=== PATIENT | female | born 1960 | race Caucasian/White ===

== ENCOUNTER 2017-10-21 10:45 | Day surgery (SDC) | payer OTHER, SELFPAY ==
[2017-10-21 11:00] VITALS: BP 118/87; BP 129/78; BP 162/98; PULSE 108; PULSE 111; PULSE 113; RESP 20; TEMP 36.7; O2SAT 96
--- NOTE | 2017-10-21 11:28 | HMH.PMPROC ---
- Procedure Date: 10/21/17 Time: 11:28 Anesthesiologist:: Reece Degroot MD Complications:: None Pre-procedure Diagnosis:: Degenerative disc disease of cervical spine with cervical spondylosis and facet of the Post-procedure Diagnosis:: Same Indications for Procedure:: This patient is a pleasant 56-year-old white female who we are treating for neck pain as well as low back pain. She has degenerative disc disease of the cervical spine with cervical facet arthropathy and spondylosis. She has had one round of cervical medial branch blocks at C5-C6, C6-C7 and C7-T1 bilaterally with 80% relief lasted 4 days. She presents for a second round of medial branch blocks today at the same levels. Procedure Details:: Cervical medial branch block Informed consent was obtained and the risk and benefits of the procedure was explained to the patient. The patient was into the procedure room and placed prone on the procedure table. The neck was prepped using ChloraPrep. C-arm fluoroscopy was used to view the cervical spine. The skin and subcutaneous tissues were anesthetized lidocaine. I placed 22-gauge spinal needles into the facet joints of C5-6, C6-7 and C7-T1 bilaterally. Needle placement was confirmed with dye. After this I injected 1 mL lidocaine 1.5% and Depo-Medrol 13 mg into each facet joint/medial branch of C5-6, C6-7 and C7-T1 bilaterally. We used a total of 80 mg of Medrol for all 3 levels bilaterally. Patient tolerated the procedure well with no complications. Plan and Disposition:: We will follow-up with this patient in 2 weeks. We will reevaluate symptoms at that time. If she gets success with these medial branch blocks we will proceed to cervical RFA of C5-6, C7 and C7-T1 bilaterally.
[2017-10-21 12:31] VITALS: BP 130/86; PULSE 90; RESP 18; TEMP 37; O2SAT 96
== END 2017-10-21 12:32 | disposition home or self-care (01) ==
LOC: SC.PAINP 10:48
PROVIDERS: Family Provider Emergency Medicine; PCP Emergency Medicine; Visit Provider Anesthesiology
DX: M50.30 Other cervical disc degeneration, unspecified cervical region (principal); M47.892 Other spondylosis, cervical region
CPT/HCPCS: 64490; 64491; 64492; J1040; Q9966

== ENCOUNTER → 2017-12-05 15:12 | Outpatient (POV) | payer OTHER, SELFPAY ==
--- NOTE | 2017-12-05 15:22 | HMH.PAINSOAP ---
[facility] Pain Management SOAP Note Subjective:: patient Is a pleasant 57-year-old white female presents today for follow-up after medial branch blocks of cervical spine. Patient had 60% relief after the injection and she continues to still have this relief for more than 4 weeks. Patient is also medically managed by us with [place] 5 p.o. 4 times daily and gabapentin 300 mg 4 times daily. Patient's KAROL #[id number] reviewed and appropriate. Patient's UDS has been appropriate in the past. Patient states that weather does make her pain worse however she has been doing well since her last injection. ROS General: no recent weight change, no fever, no sleep disturbances Respiratory: no cough, no shortness of air, no recurring pulmonary infections Cardiovascular/Peripheral Vascular: No chest pain, No palpitations, no edema, no shortness of breath. Gastrointestinal: no incontinence, normal bowel movements reported Genitourinary: no incontinence Musculoskeletal: Neck pain Psychiatric: normal mood/ affect Neurological: [denies weakness in extremities], [denies balance issues] Objective:: Physical Exam General: Alert and oriented x3, no acute distress, pleasant and cooperative, [on room air] Lungs: Resps E/U, Symmetrical chest expansion, Musculoskeletal: Flexion and extension of lumbar and cervical spine somewhat guarded secondary to pain, deep tendon reflexes normal, strength in upper and lower extremities [5/5], normal gait noted Neurological: speech clear, pulp mill operator equal, no gross sensory deficits Assessment:: Cervical spondylosis, cervical facet arthropathy, degenerative disc disease lumbar spine Plan:: Patient and I talked in length about RFA of the cervical spine. I believe that this would be very good for her moving forward since she has gotten such great relief with her medial branch blocks. Patient would like to research this on her own for a bit and decide. Patient has tried and failed conservative therapies including physical therapy and anti-inflammatories. Patient also do refills today. Since UDS has been appropriate in the past. Patient's Karol #[id number] reviewed and appropriate. We will refill the patient's [place] 5 mg 1 p.o. 4 times daily. We will give her [address] Degroot is reviewed the chart and approved. Patient has been prescribed a controlled substance after being counseled on the medication, medication safety, and possible side effects. KAROL report has been obtained and reviewed prior to prescription and found to be appropriate. Opioid contract was reviewed and signed by the patient, and that they have agreed to all of the terms set forth by our compliance program. This note was dictated using voice recognition software and may contain errors or omissions
[2017-12-05 15:25] VITALS: BP 140/77; PULSE 97; RESP 18; O2SAT 97; BMI 25.0
--- NOTE | 2017-12-05 15:29 | P.CONS_ITS ---
[facility] Pain Management SOAP Note Subjective:: patient Is a pleasant 57-year-old white female presents today for follow-up after medial branch blocks of cervical spine. Patient had 60% relief after the injection and she continues to still have this relief for more than 4 weeks. Patient is also medically managed by us with [place] 5 p.o. 4 times daily and gabapentin 300 mg 4 times daily. Patient's KAROL #[id number] reviewed and appropriate. Patient's UDS has been appropriate in the past. Patient states that weather does make her pain worse however she has been doing well since her last injection. ROS General: no recent weight change, no fever, no sleep disturbances Respiratory: no cough, no shortness of air, no recurring pulmonary infections Cardiovascular/Peripheral Vascular: No chest pain, No palpitations, no edema, no shortness of breath. Gastrointestinal: no incontinence, normal bowel movements reported Genitourinary: no incontinence Musculoskeletal: Neck pain Psychiatric: normal mood/ affect Neurological: [denies weakness in extremities], [denies balance issues] Objective:: Physical Exam General: Alert and oriented x3, no acute distress, pleasant and cooperative, [ on room air] Lungs: Resps E/U, Symmetrical chest expansion, Musculoskeletal: Flexion and extension of lumbar and cervical spine somewhat guarded secondary to pain, deep tendon reflexes normal, strength in upper and lower extremities [5/5], normal gait noted Neurological: speech clear, labor custodian equal, no gross sensory deficits Assessment:: Cervical spondylosis, cervical facet arthropathy, degenerative disc disease lumbar spine Plan:: Patient and I talked in length about RFA of the cervical spine. I believe that this would be very good for her moving forward since she has gotten such great relief with her medial branch blocks. Patient would like to research this on her own for a bit and decide. Patient has tried and failed conservative therapies including physical therapy and anti-inflammatories. Patient also do refills today. Since UDS has been appropriate in the past. Patient's Karol # [id number] reviewed and appropriate. We will refill the patient's [place] 5 mg 1 p.o. 4 times daily. We will give her [address] Degroot is reviewed the chart and approved. Patient has been prescribed a controlled substance after being counseled on the medication, medication safety, and possible side effects. KAROL report has been obtained and reviewed prior to prescription and found to be appropriate. Opioid contract was reviewed and signed by the patient, and that they have agreed to all of the terms set forth by our compliance program. This note was dictated using voice recognition software and may contain errors or omissions
== END ==
PROVIDERS: Family Provider Emergency Medicine; PCP Emergency Medicine; Visit Provider Clinical Nurse Specialist Family Health
DX: M47.22 Other spondylosis with radiculopathy, cervical region (principal)
CPT/HCPCS: 99212

== ENCOUNTER → 2017-12-30 11:47 | Outpatient (CLI) | payer OTHER, SELFPAY ==
[2017-12-30 14:08] LABS: Basophils # 0.1 K/mm3 (0-0.2); Basophils % 0.5 % (0.1-2.0); Eosinophils # 0.1 K/mm3 (0.0-0.4); Eosinophils % 0.8 % (0.1-12.0); Hematocrit 45.6 % (37.0-47.0); Hemoglobin 15.1 g/dL (12.2-16.2); Lymphocytes # 2.3 K/mm3 (0.7-4.5); Lymphocytes % 21.9 K/mm3 (10-50); Mean Corpuscular Hemoglobin 31.2 pg (27.0-31.2); Mean Corpuscular Volume 94.4 fl (81-99); Mean Platelet Volume 9.6 fl (7.4-10.4); Monocytes # 0.6 K/mm3 (0.1-1.0); Monocytes % 5.4 % (1.7-9.3); Neutrophils # 7.3 K/mm3 (1.8-7.8); Neutrophils % 71.4 % (37.0-80.0); Platelet Count 314 K/mm3 (142-424); Red Blood Count 4.83 M/mm3 (4.20-5.40); Red Cell Distribution Width 12.5 % (11.5-17.5); White Blood Count 10.3 K/mm3 (4.8-10.8)
[2017-12-30 14:44] LABS: Magnesium 2.2 mg/dL (1.4-2.2)
[2017-12-30 14:55] LABS: Alanine Aminotransferase 40 U/L (12-78); Albumin Level 4.3 gm/dL (3.4-5.0); Albumin/Globulin Ratio 1.2 (1.1-1.8); Alkaline Phosphatase 109 U/L (46-116); Anion Gap 14.4 mEq/L (5-15); Aspartate Amino Transferase 28 U/L (15-37); Bilirubin,Total 0.1 mg/dL (0.2-1.0); Blood Urea Nitrogen 12 mg/dL (7-18); Calcium 9.6 mg/dL (8.5-10.1); Carbon Dioxide 27 mmol/L (21.0-32.0); Chloride 104 mmol/L (98-107); Chol/HDL Ratio 4.6 (1-3.5); Cholesterol 255 mg/dL (140-200); Creatinine,Serum 0.83 mg/dL (0.55-1.02); Estimated Glomerular Filt Rate 71 ml/min (>60); Free T4 (Free Thyroxine) 0.94 ng/dl (0.76-1.46); GFR (African American) 86 ML/MIN (>60); Globulin 3.5 gm/dl (1.3-3.2); Glucose 102 mg/dL (74-106); HDL Cholesterol 55 mg/dL (29-89); LDL Cholesterol 160 mg/dL (0-130); Potassium 4.4 mmoL/L (3.5-5.1); Sodium 141 mmol/L (136-145); Thyroid Stimulating Hormone 1.59 uIU/ml (0.358-3.740); Total Protein,Serum 7.8 gm/dL (6.4-8.2); Triglycerides 198 mg/dL (30-200); VLDL Cholesterol 40 mg/dL (0-40)
[2017-12-30 16:56] LABS: Hemoglobin A1C 5.3 % (0.0-7.0)
[2017-12-31 18:31] LABS: Vitamin B12 596 pg/mL (232-1245); Vitamin D 25 Hydroxy 32.8 ng/mL (30.0-100.0)
== END ==
PROVIDERS: Visit Provider Nurse Practitioner Family
DX: R53.83 Other fatigue (principal); E55.9 Vitamin D deficiency, unspecified; E78.5 Hyperlipidemia, unspecified; K21.9 Gastro-esophageal reflux disease without esophagitis; F41.9 Anxiety disorder, unspecified; F32.9 Major depressive disorder, single episode, unspecified; Z79.899 Other long term (current) drug therapy
CPT/HCPCS: 80053; 80061; 82607; 82652; 83036; 83735; 84439; 84443; 85025

== ENCOUNTER → 2018-02-27 08:58 | Outpatient (POV) | payer OTHER, SELFPAY ==
[2018-02-27 09:17] VITALS: BP 157/93; PULSE 122; RESP 20; TEMP 36.6; O2SAT 99; BMI 33.8
[2018-02-27 09:23] LABS: Amphetamine/Metha Screen,Urine Negative ng/mL (<1000); Barbiturates Screen,Urine Negative ng/mL (<200); Benzodiazepines Screen,Urine Negative ng/mL (200); Cannabinoid Screen,Urine Negative ng/mL (<50); Cocaine Screen,Urine Negative ng/g (<300); Methadone Screen,Urine Negative ng/mL (<300); Opiate Screen,Urine Positive ng/mL (<300); Phencyclidine Screen,Urine Negative ng/mL (<25)
--- NOTE | 2018-02-27 09:46 | HMH.PAINSOAP ---
[facility] Pain Management SOAP Note Subjective:: Patient is a pleasant 57-year-old white female who presents today for follow-up. Patient has had medial branch blocks of the cervical spine in the past and has had excellent relief with them. At her last visit we discussed an RFA. Patient states she is not in a position where she wants to move forward with this at this time. Patient states she is having some anxiety issues that she is working on with her psychologist. Patient also states that she has her disability hearing this week. Patient states she has been struggling with her anxiety since she has stopped her Valium. Patient is currently being medically managed with [place] 5 p.o. 4 times daily and gabapentin 300 mg 1 p.o. 4 times daily. Patient's KAROL #[id number] reviewed and appropriate. Patient's UDS is pending today. Patient's UDS has been appropriate in the past. Patient denies side effects to the medication. Patient states that helps 60-70% with her pain symptoms. ROS General: no recent weight change, no fever, no sleep disturbances Respiratory: no cough, no shortness of air, no recurring pulmonary infections Cardiovascular/Peripheral Vascular: No chest pain, No palpitations, no edema, no shortness of breath. Gastrointestinal: no incontinence, normal bowel movements reported Genitourinary: no incontinence Musculoskeletal: Neck pain Psychiatric: normal mood/ affect Neurological: [denies weakness in extremities], [denies balance issues] Objective:: Physical Exam General: Alert and oriented x3, no acute distress, pleasant and cooperative, [on room air] Lungs: Resps E/U, Symmetrical chest expansion, Eyes: PERRL Musculoskeletal: Flexion and extension of cervical and lumbar spine somewhat guarded secondary to pain, deep tendon reflexes normal, strength in upper and lower extremities [5/5], normal gait noted Neurological: speech clear, field test engineer equal, no gross sensory deficits Assessment:: Cervical spondylosis, cervical facet arthropathy, degenerative disc disease of the lumbar spine Plan:: We will refill the patient's medication [place] 5 mg 1 p.o. 4 times daily and gabapentin 300 mg 1 p.o. 4 times daily. Patient's Karol and urine drug screen both have been reviewed we will continue to monitor. Patient will get 2 months worth of prescriptions and we will follow-up with her in [address] Degroot has reviewed this chart and agrees with this plan of care. Patient has been prescribed a controlled substance after being counseled on the medication, medication safety, and possible side effects. KAROL report has been obtained and reviewed prior to prescription and found to be appropriate. Opioid contract was reviewed and signed by the patient, and that they have agreed to all of the terms set forth by our compliance program. This note was dictated using voice recognition software and may contain errors or omissions
--- NOTE | 2018-02-27 09:49 | P.CONS_ITS ---
[facility] Pain Management SOAP Note Subjective:: Patient is a pleasant 57-year-old white female who presents today for follow- up. Patient has had medial branch blocks of the cervical spine in the past and has had excellent relief with them. At her last visit we discussed an RFA. Patient states she is not in a position where she wants to move forward with this at this time. Patient states she is having some anxiety issues that she is working on with her psychologist. Patient also states that she has her disability hearing this week. Patient states she has been struggling with her anxiety since she has stopped her Valium. Patient is currently being medically managed with [place] 5 p.o. 4 times daily and gabapentin 300 mg 1 p.o. 4 times daily. Patient's KAROL #[id number] reviewed and appropriate. Patient's UDS is pending today. Patient's UDS has been appropriate in the past. Patient denies side effects to the medication. Patient states that helps 60-70% with her pain symptoms. ROS General: no recent weight change, no fever, no sleep disturbances Respiratory: no cough, no shortness of air, no recurring pulmonary infections Cardiovascular/Peripheral Vascular: No chest pain, No palpitations, no edema, no shortness of breath. Gastrointestinal: no incontinence, normal bowel movements reported Genitourinary: no incontinence Musculoskeletal: Neck pain Psychiatric: normal mood/ affect Neurological: [denies weakness in extremities], [denies balance issues] Objective:: Physical Exam General: Alert and oriented x3, no acute distress, pleasant and cooperative, [ on room air] Lungs: Resps E/U, Symmetrical chest expansion, Eyes: PERRL Musculoskeletal: Flexion and extension of cervical and lumbar spine somewhat guarded secondary to pain, deep tendon reflexes normal, strength in upper and lower extremities [5/5], normal gait noted Neurological: speech clear, trapeze performer equal, no gross sensory deficits Assessment:: Cervical spondylosis, cervical facet arthropathy, degenerative disc disease of the lumbar spine Plan:: We will refill the patient's medication [place] 5 mg 1 p.o. 4 times daily and gabapentin 300 mg 1 p.o. 4 times daily. Patient's Karol and urine drug screen both have been reviewed we will continue to monitor. Patient will get 2 months worth of prescriptions and we will follow-up with her in [address] Degroot has reviewed this chart and agrees with this plan of care. Patient has been prescribed a controlled substance after being counseled on the medication, medication safety, and possible side effects. KAROL report has been obtained and reviewed prior to prescription and found to be appropriate. Opioid contract was reviewed and signed by the patient, and that they have agreed to all of the terms set forth by our compliance program. This note was dictated using voice recognition software and may contain errors or omissions
[2018-03-04 07:22] LABS: Codeine Negative (Cutoff=100); Hydrocodone Positive (.); Hydromorphone Positive (.); Morphine Negative (Cutoff=100)
[2018-03-04 18:39] LABS: Opiates Positive (.)
== END ==
PROVIDERS: Family Provider Emergency Medicine; PCP Emergency Medicine; Visit Provider Clinical Nurse Specialist Family Health
DX: M47.812 Spondylosis without myelopathy or radiculopathy, cervical region (principal); Z79.899 Other long term (current) drug therapy
CPT/HCPCS: 80305; 80361; 80365; 99212; G0480

== ENCOUNTER → 2018-04-04 09:28 | Outpatient (POV) | payer OTHER, SELFPAY ==
[2018-04-04 10:05] VITALS: BP 152/87; PULSE 135; RESP 20; O2SAT 98; BMI 26.4
--- NOTE | 2018-04-04 11:24 | HMH.PAINSOAP ---
[facility] Pain Management SOAP Note Subjective:: A pleasant 57-year-old white female who presents today for follow-up discussion. Patient has been receiving injections from us with extremely good relief. At last visit we did discuss an RFA. Patient wants to hold off on this at this time. Patient is having additional anxiety issues she is currently seeing a psychologist . Patient was taken off her diazepam due to her narcotic prescriptions. Patient has tried multiple medications to replace this however she has found that they are ineffective. Patient is tearful today and states that she is having no quality of life due to her debilitating anxiety. Patient and I had a long discussion about narcotics and benzodiazepines. Patient understands that there are risks. I discussed with the patient if she would like to continue with the diazepam and her psychologist wrote us a note stating that he understood that she was on the medication that she was receiving from us and he was willing to continue to monitor her diazepam use that we would continue on with her medication management in injective therapy. ROS General: no recent weight change, no fever, no sleep disturbances Respiratory: no cough, no shortness of air, no recurring pulmonary infections Cardiovascular/Peripheral Vascular: No chest pain, No palpitations, no edema, no shortness of breath. Gastrointestinal: no incontinence, normal bowel movements reported Genitourinary: no incontinence Musculoskeletal:neck Pain Psychiatric: Anxious Neurological: [denies weakness in extremities], [denies balance issues] Objective:: Physical Exam General: Alert and oriented x3, no acute distress, pleasant and cooperative, [on room air] Lungs: Resps E/U, Symmetrical chest expansion, Eyes: PERRL Musculoskeletal: Flexion and extension of cervical spine somewhat guarded secondary to pain, deep tendon reflexes normal, strength in upper and lower extremities [5/5], normal gait noted Neurological: speech clear, snubber equal, no gross sensory deficits Assessment:: Cervical spondylosis, cervical facet arthropathy, degenerative disc disease of the lumbar spine Plan:: Patient and I discussed utilizing diazepam with her current narcotic treatment. Patient understands the risks of both medications at the same time. Patient is going to speak with her psychologist and have him write a note to our office stating that he is aware of the medication she is receiving from us prior to starting her back on diazepam therapy. I believe that at this time the diazepam may be helpful in decreasing her quality of life. I will follow-up with her at her next appointment for her medication refills. This note was dictated using voice recognition software and may contain errors or omissions
--- NOTE | 2018-04-04 11:27 | P.CONS_ITS ---
[facility] Pain Management SOAP Note Subjective:: A pleasant 57-year-old white female who presents today for follow-up discussion. Patient has been receiving injections from us with extremely good relief. At last visit we did discuss an RFA. Patient wants to hold off on this at this time. Patient is having additional anxiety issues she is currently seeing a psychologist . Patient was taken off her diazepam due to her narcotic prescriptions. Patient has tried multiple medications to replace this however she has found that they are ineffective. Patient is tearful today and states that she is having no quality of life due to her debilitating anxiety. Patient and I had a long discussion about narcotics and benzodiazepines. Patient understands that there are risks. I discussed with the patient if she would like to continue with the diazepam and her psychologist wrote us a note stating that he understood that she was on the medication that she was receiving from us and he was willing to continue to monitor her diazepam use that we would continue on with her medication management in injective therapy. ROS General: no recent weight change, no fever, no sleep disturbances Respiratory: no cough, no shortness of air, no recurring pulmonary infections Cardiovascular/Peripheral Vascular: No chest pain, No palpitations, no edema, no shortness of breath. Gastrointestinal: no incontinence, normal bowel movements reported Genitourinary: no incontinence Musculoskeletal:neck Pain Psychiatric: Anxious Neurological: [denies weakness in extremities], [denies balance issues] Objective:: Physical Exam General: Alert and oriented x3, no acute distress, pleasant and cooperative, [ on room air] Lungs: Resps E/U, Symmetrical chest expansion, Eyes: PERRL Musculoskeletal: Flexion and extension of cervical spine somewhat guarded secondary to pain, deep tendon reflexes normal, strength in upper and lower extremities [5/5], normal gait noted Neurological: speech clear, phlebotomist equal, no gross sensory deficits Assessment:: Cervical spondylosis, cervical facet arthropathy, degenerative disc disease of the lumbar spine Plan:: Patient and I discussed utilizing diazepam with her current narcotic treatment. Patient understands the risks of both medications at the same time. Patient is going to speak with her psychologist and have him write a note to our office stating that he is aware of the medication she is receiving from us prior to starting her back on diazepam therapy. I believe that at this time the diazepam may be helpful in decreasing her quality of life. I will follow-up with her at her next appointment for her medication refills. This note was dictated using voice recognition software and may contain errors or omissions
== END ==
PROVIDERS: Family Provider Emergency Medicine; PCP Emergency Medicine; Visit Provider Clinical Nurse Specialist Family Health
DX: M47.812 Spondylosis without myelopathy or radiculopathy, cervical region (principal)
CPT/HCPCS: 99212

== ENCOUNTER → 2018-04-24 10:06 | Outpatient (POV) | payer OTHER, SELFPAY ==
[2018-04-24 10:32] VITALS: BP 126/72; PULSE 109; RESP 18; O2SAT 98; BMI 26.1
--- NOTE | 2018-04-24 11:25 | HMH.PAINSOAP ---
[facility] Pain Management SOAP Note Subjective:: Patient is a pleasant 57-year-old white female who presents today for follow-up and medication refills. Patient is being treated for pain secondary to cervical spondylosis, cervical facet arthropathy, degenerative disc disease of lumbar spine. Patient's currently being managed on [place] 5 mg 1 p.o. 4 times daily and gabapentin 300 mg 1 p.o. 4 times a day. At last visit patient was tearful talking about her debilitating anxiety. Since then she has been put back on Valium by her psychologist. Patient psychologist wrote us a letter stating that he felt that this was appropriate. Patient was given permission from this office to continue on her Valium as needed. She states most of her pain is in her neck and her low back today. She rates her pain a 7 out of 10. ROS General: no recent weight change, no fever, no sleep disturbances Respiratory: no cough, no shortness of air, no recurring pulmonary infections Cardiovascular/Peripheral Vascular: No chest pain, No palpitations, no edema, no shortness of breath. Gastrointestinal: no incontinence, normal bowel movements reported Genitourinary: no incontinence Musculoskeletal: Neck pain, back pain Psychiatric: normal mood/ affect Neurological: [denies weakness in extremities], [denies balance issues] Objective:: Physical Exam General: Alert and oriented x3, no acute distress, pleasant and cooperative, [on room air] Lungs: Resps E/U, Symmetrical chest expansion, Eyes: PERRL Musculoskeletal: Flexion and extension of cervical and lumbar spine somewhat guarded secondary to pain, deep tendon reflexes normal, strength in upper and lower extremities [5/5], normal gait noted Neurological: speech clear, foundation engineer equal, no gross sensory deficits Assessment:: Degenerative disc disease of the lumbar spine, cervical spondylosis, cervical facet arthropathy Plan:: We will refill the patient's [place] 5 mg 1 p.o. 4 times daily and give HER-2 months worth of prescriptions will also refill her gabapentin 300 mg 1 p.o. 4 times daily. Patient's KAROL #[id number] reviewed and appropriate. Patient's urine drug screen has been appropriate in the past. We will follow-up with her in 3 months she can picker packer her third month prescription in the interim. Dr. Degroot has reviewed this chart and agrees with this plan of care. Patient has been prescribed a controlled substance after being counseled on the medication, medication safety, and possible side effects. KAROL report has been obtained and reviewed prior to prescription and found to be appropriate. Opioid contract was reviewed and signed by the patient, and that they have agreed to all of the terms set forth by our compliance program. This note was dictated using voice recognition software and may contain errors or omissions
--- NOTE | 2018-04-24 11:28 | P.CONS_ITS ---
[facility] Pain Management SOAP Note Subjective:: Patient is a pleasant 57-year-old white female who presents today for follow-up and medication refills. Patient is being treated for pain secondary to cervical spondylosis, cervical facet arthropathy, degenerative disc disease of lumbar spine. Patient's currently being managed on [place] 5 mg 1 p.o. 4 times daily and gabapentin 300 mg 1 p.o. 4 times a day. At last visit patient was tearful talking about her debilitating anxiety. Since then she has been put back on Valium by her psychologist. Patient psychologist wrote us a letter stating that he felt that this was appropriate. Patient was given permission from this office to continue on her Valium as needed. She states most of her pain is in her neck and her low back today. She rates her pain a 7 out of 10. ROS General: no recent weight change, no fever, no sleep disturbances Respiratory: no cough, no shortness of air, no recurring pulmonary infections Cardiovascular/Peripheral Vascular: No chest pain, No palpitations, no edema, no shortness of breath. Gastrointestinal: no incontinence, normal bowel movements reported Genitourinary: no incontinence Musculoskeletal: Neck pain, back pain Psychiatric: normal mood/ affect Neurological: [denies weakness in extremities], [denies balance issues] Objective:: Physical Exam General: Alert and oriented x3, no acute distress, pleasant and cooperative, [ on room air] Lungs: Resps E/U, Symmetrical chest expansion, Eyes: PERRL Musculoskeletal: Flexion and extension of cervical and lumbar spine somewhat guarded secondary to pain, deep tendon reflexes normal, strength in upper and lower extremities [5/5], normal gait noted Neurological: speech clear, sponge buffer equal, no gross sensory deficits Assessment:: Degenerative disc disease of the lumbar spine, cervical spondylosis, cervical facet arthropathy Plan:: We will refill the patient's [place] 5 mg 1 p.o. 4 times daily and give HER-2 months worth of prescriptions will also refill her gabapentin 300 mg 1 p.o. 4 times daily. Patient's KAROL #[id number] reviewed and appropriate. Patient's urine drug screen has been appropriate in the past. We will follow-up with her in 3 months she can picker / packer her third month prescription in the interim. Dr. Degroot has reviewed this chart and agrees with this plan of care. Patient has been prescribed a controlled substance after being counseled on the medication, medication safety, and possible side effects. KAROL report has been obtained and reviewed prior to prescription and found to be appropriate. Opioid contract was reviewed and signed by the patient, and that they have agreed to all of the terms set forth by our compliance program. This note was dictated using voice recognition software and may contain errors or omissions
--- NOTE | 2018-06-21 09:35 | PC.NURSE ---
Gabapentin 300mg po QID with 2 refills [facility]ed to [facility]
== END ==
PROVIDERS: Family Provider Emergency Medicine; PCP Emergency Medicine; Visit Provider Clinical Nurse Specialist Family Health
DX: M47.22 Other spondylosis with radiculopathy, cervical region (principal)
CPT/HCPCS: 99212

== ENCOUNTER → 2018-07-03 10:18 | Outpatient (POV) | payer OTHER, SELFPAY ==
[2018-07-03 10:25] VITALS: BP 121/80; PULSE 116; RESP 18; O2SAT 96; BMI 25.2
--- NOTE | 2018-07-03 10:38 | [facility].PAINSOAP ---
[facility] Pain Management SOAP Note Subjective:: Patient is a pleasant 57-year-old white female who presents today for follow-up and medication refills. Patient is being treated for pain secondary to cervical spondylosis, cervical facet arthropathy, degenerative disc disease lumbar spine. Patient is currently being medically managed with [place] 5 mg 1 p.o. 4 times daily and gabapentin 300 mg 1 p.o. 4 times a day. Patient is planning on moving to [place] at the end of this month. She rates her pain a 7 out of 10 today. Patient she is having some anxiety due to the move. Patient will be transferring care. ROS General: no recent weight change, no fever, no sleep disturbances Respiratory: no cough, no shortness of air, no recurring pulmonary infections Cardiovascular/Peripheral Vascular: No chest pain, No palpitations, no edema, no shortness of breath. Gastrointestinal: no incontinence, normal bowel movements reported Genitourinary: no incontinence Musculoskeletal: Neck, back pain Psychiatric: normal mood/ affect, Neurological: [denies weakness in extremities], [denies balance issues] Objective:: Physical Exam General: Alert and oriented x3, no acute distress, pleasant and cooperative, [on room air] Lungs: Resps E/U, Symmetrical chest expansion, Eyes: PERRL Musculoskeletal: Flexion and extension of lumbar and cervical spine somewhat guarded secondary to pain, deep tendon reflexes normal, strength in upper and lower extremities [5/5], slightly antalgic gait noted Neurological: speech clear, library consultant equal, no gross sensory deficits Assessment:: degenerative disc disease of the lumbar spine with lumbar radiculopathy and cervical spondylosis and cervical facet arthropathy Plan:: We will refill the patient's [place] 5 mg 1 p.o. 4 times daily and give HER-2 months worth of prescriptions. We will also refill her gabapentin 300 mg 1 p.o. 4 times daily and give HER-2 prescriptions. Patient's KAROL #[id number] reviewed and appropriate. Patient's UDS has been appropriate in the past. We will transfer her care to [place]. Patient has been prescribed a controlled substance after being counseled on the medication, medication safety, and possible side effects. KAROL report has been obtained and reviewed prior to prescription and found to be appropriate. Opioid contract was reviewed and signed by the patient, and that they have agreed to all of the terms set forth by our compliance program. This note was dictated using voice recognition software and may contain errors or omissions
--- NOTE | 2018-07-03 10:44 | P.CONS_ITS ---
[facility] Pain Management SOAP Note Subjective:: Patient is a pleasant 57-year-old white female who presents today for follow-up and medication refills. Patient is being treated for pain secondary to cervical spondylosis, cervical facet arthropathy, degenerative disc disease lumbar spine. Patient is currently being medically managed with [place] 5 mg 1 p.o. 4 times daily and gabapentin 300 mg 1 p.o. 4 times a day. Patient is planning on moving to [place] at the end of this month. She rates her pain a 7 out of 10 today. Patient she is having some anxiety due to the move. Patient will be transferring care. ROS General: no recent weight change, no fever, no sleep disturbances Respiratory: no cough, no shortness of air, no recurring pulmonary infections Cardiovascular/Peripheral Vascular: No chest pain, No palpitations, no edema, no shortness of breath. Gastrointestinal: no incontinence, normal bowel movements reported Genitourinary: no incontinence Musculoskeletal: Neck, back pain Psychiatric: normal mood/ affect, Neurological: [denies weakness in extremities], [denies balance issues] Objective:: Physical Exam General: Alert and oriented x3, no acute distress, pleasant and cooperative, [on room air] Lungs: Resps E/U, Symmetrical chest expansion, Eyes: PERRL Musculoskeletal: Flexion and extension of lumbar and cervical spine somewhat guarded secondary to pain, deep tendon reflexes normal, strength in upper and lower extremities [5/5], slightly antalgic gait noted Neurological: speech clear, insurance business analyst equal, no gross sensory deficits Assessment:: degenerative disc disease of the lumbar spine with lumbar radiculopathy and cervical spondylosis and cervical facet arthropathy Plan:: We will refill the patient's [place] 5 mg 1 p.o. 4 times daily and give HER-2 months worth of prescriptions. We will also refill her gabapentin 300 mg 1 p.o. 4 times daily and give HER-2 prescriptions. Patient's KAROL #[id number] reviewed and appropriate. Patient's UDS has been appropriate in the past. We will transfer her care to [place]. Patient has been prescribed a controlled substance after being counseled on the medication, medication safety, and possible side effects. KAROL report has been obtained and reviewed prior to prescription and found to be appropriate. Opioid contract was reviewed and signed by the patient, and that they have agreed to all of the terms set forth by our compliance program. This note was dictated using voice recognition software and may contain errors or omissions
[2018-07-03 11:46] LABS: Amphetamine/Metha Screen,Urine Negative ng/mL (<1000); Barbiturates Screen,Urine Negative ng/mL (<200); Benzodiazepines Screen,Urine Positive ng/mL (<200); Cannabinoid Screen,Urine Negative ng/mL (<50); Cocaine Screen,Urine Negative ng/mL (<300); Methadone Screen,Urine Negative ng/mL (<300); Opiate Screen,Urine Positive ng/mL (<300); Phencyclidine Screen,Urine Negative ng/mL (<25)
[2018-07-08 03:38] LABS: Codeine Negative (Cutoff=100); Hydrocodone Positive (.); Hydromorphone Positive (.); Morphine Negative (Cutoff=100)
[2018-07-08 18:39] LABS: Opiates Positive (.)
== END ==
PROVIDERS: Family Provider Emergency Medicine; PCP Emergency Medicine; Visit Provider Clinical Nurse Specialist Family Health
DX: M51.16 Intervertebral disc disorders with radiculopathy, lumbar region (principal); M47.892 Other spondylosis, cervical region; M54.02 Panniculitis affecting regions of neck and back, cervical region
CPT/HCPCS: 80305; 80361; 80365; 99213; G0480